=== PATIENT | female | born 1965 | race Caucasian/White ===

== ENCOUNTER 2017-04-30 14:47 | Outpatient (CLI) | payer OTHER ==
--- NOTE | 2017-04-30 15:41 | XRAY Report ---
EXAM: LEFT SHOULDER RADIOGRAPHY EXAM DATE: 04/30/2017 03:33 PM. CLINICAL HISTORY: Pain in left shoulder. Left shoulder pain after fall 4 months ago. COMPARISON: None. TECHNIQUE: 2 views. FINDINGS: Bones: No acute fracture or bony lesion. Type I acromion. Joints: Normal alignment. Ftpy-me-cnuvnioy narrowing of the left acromioclavicular and mild narrowing of the left glenohumeral joints. No dislocation. Soft tissues: The visualized hemithorax is unremarkable. No soft tissue swelling. IMPRESSION: 1. No acute osseous abnormalities . Normal alignment. 2. [id number] degenerative changes of the left shoulder. [facility] Referring Provider Line: [phone] SITE ID: [id number]
== END 2017-04-30 14:48 | disposition home or self-care (01) ==
LOC: DI 14:47
PROVIDERS: ATTEND Nurse Practitioner Family
DX: M19.012 Primary osteoarthritis, left shoulder (principal)

== ENCOUNTER 2018-01-04 13:24 | Outpatient (CLI) | payer OTHER ==
--- NOTE | 2018-01-05 11:23 | Mammography Report ---
Reason: SCREENING MAMMO Procedure Date: 01/04/2018 Accession Number: [id number] / [id number] Procedure: [facility] - Screening Mammo w/Ramesh CPT Code: FULL RESULT: EXAM: Screening Mammo w/Ramesh DATE: 01/04/2018 1:58 PM CLINICAL HISTORY: 52-year-old female with family history of breast cancer in the mother at age 65. TECHNIQUE: Bilateral CC and MLO views were obtained. COMPARISON: 03/06/2013, 02/10/2011, 01/28/2011. FINDINGS: The breasts demonstrate scattered fibroglandular densities bilaterally. There are stable coarse typically benign calcifications throughout both breasts as well as large rodlike calcifications in the left breast which are typically benign. No suspicious masses, clustered microcalcifications, or regions of architectural distortion are identified. IMPRESSION: Benign findings RECOMMENDATION: Routine annual screening unless otherwise clinically indicated. BIRADS CATEGORY 2: Benign findings STANDARD QUALIFYING STATEMENTS: 1. This examination was not reviewed with the aid of Computer-Aided Detection (CAD). 2. A negative or benign imaging report should not delay biopsy if clinically suspicious findings are present. Consider surgical consultation if warrented. More than 5% of cancers are not identified by imaging. 3. Dense breasts may obscure an underlying neoplasm. 4. This examination was reviewed with the aid of 3D breast imaging (tomosynthesis).
== END 2018-01-04 13:25 | disposition home or self-care (01) ==
LOC: DI 13:24
DX: Z12.31 Encounter for screening mammogram for malignant neoplasm of breast (principal); Z80.3 Family history of malignant neoplasm of breast
CPT/HCPCS: 77063; 77067

== ENCOUNTER 2020-05-14 08:00 | Outpatient (CLI) | payer OTHER ==
[2020-05-14 20:10] LABS: BASOPHILS % (AUTO) 0.4 %; EOSINOPHILS # (AUTO) 0.1 10^3/uL (0.0-0.7); EOSINOPHILS % (AUTO) 1.1 %; HGB - HEMOGLOBIN 13.6 g/dL (12.0-16.0); LYMPHOCYTES # (AUTO) 1.7 10^3/uL (1.5-3.5); LYMPHOCYTES % (AUTO) 36.1 %; MEAN CORPUSCULAR HEMOGLOBIN 29.1 pg (27.0-31.0); MEAN CORPUSCULAR HGB CONC 31.6 g/dL (32.0-36.0); MEAN CORPUSCULAR VOLUME 91.9 fL (81.0-99.0); MEAN PLATELET VOLUME 10.4 fL (7.9-10.8); MONOCYTES # (AUTO) 0.3 10^3/uL (0.0-1.0); MONOCYTES % (AUTO) 5.7 %; NEUTROPHILS # (AUTO) 2.6 10^3/uL (1.5-6.6); NEUTROPHILS % (AUTO) 56.5 %; PLT - PLATELET COUNT 258 10^3/uL (130-450); RED BLOOD COUNT 4.68 10^6/uL (4.20-5.40); RED CELL DISTRIBUTION WIDTH 13.5 % (12.0-15.0); WHITE BLOOD COUNT 4.6 x10^3/uL (4.8-10.8)
[2020-05-14 20:40] LABS: ALBUMIN/GLOBULIN RATIO 1.7 (1.0-2.2); BILIRUBIN,TOTAL 0.9 mg/dL (0.2-1.0); CALCIUM 9.5 mg/dL (8.5-10.3); CREATININE 0.6 mg/dL (0.4-1.0); TOTAL PROTEIN 7.9 g/dL (6.7-8.2)
== END 2020-05-14 23:59 | disposition home or self-care (01) ==
LOC: LAB.S 08:00
PROVIDERS: ATTEND Physician Assistant
DX: R00.2 Palpitations (principal); Z86.39 Personal history of other endocrine, nutritional and metabolic disease
CPT/HCPCS: 36415; 80053; 84443; 85025

== ENCOUNTER 2022-11-23 10:31 | Outpatient (CLI) | payer OTHER ==
--- NOTE | 2022-11-23 14:50 | XRAY Report ---
PROCEDURE: Shoulder 3 View RT INDICATIONS: STRAIN OF RIGHT SHOULDER TECHNIQUE: 3 views of the shoulder were acquired. COMPARISON: None. FINDINGS: Bones: No acute fracture or dislocation. Calcific tendinosis. Mild acromioclavicular joint degenerat ion. Glenohumeral joint is intact. Soft tissues: No suspicious soft tissue calcifications. IMPRESSION: No acute osseous abnormality. Reviewed by: Lanie Grove MD on 11/23/2022 2:49 PM PDT Approved by: Lanie Grove MD on 11/23/2022 2:49 PM PDT Station ID: [id number]
--- NOTE | 2022-11-23 14:51 | XRAY Report ---
PROCEDURE: Shoulder 3 View LT INDICATIONS: STRAIN OF LEFT SHOULDER TECHNIQUE: 3 views of the shoulder were acquired. COMPARISON: None. FINDINGS: Bones: No acute fracture or dislocation. Mild acromioclavicular joint degeneration. Glenohumeral todd nt is intact. Soft tissues: No suspicious soft tissue calcifications. IMPRESSION: No acute osseous abnormality. Reviewed by: Lanie Grvoe MD on 11/23/2022 2:49 PM PDT Approved by: Lanie Grove MD on 11/23/2022 2:49 PM PDT Station ID: [id number]
== END 2022-11-23 23:59 | disposition home or self-care (01) ==
LOC: DI.S 10:31
PROVIDERS: ATTEND Emergency Medicine
DX: S46.011A Strain of muscle(s) and tendon(s) of the rotator cuff of right shoulder, initial encounter (principal); S46.912A Strain of unspecified muscle, fascia and tendon at shoulder and upper arm level, left arm, initial encounter